=== PATIENT | male | born 1985 | race Caucasian/White ===

== ENCOUNTER 2017-11-16 07:22 | Emergency (ER) | payer BC ==
[2017-11-16 07:34] VITALS: BP 130/79
[2017-11-16] MEDS ORDERED: Tetracaine 0.5% OPTH.SOL 4 ML* 1 DROP BTL ONE (07:36)
[2017-11-16] MEDS ORDERED: BSS OPTH.SOL* BTL ONE (07:36)
[2017-11-16] MEDS ORDERED: Fluorescein Sod TOPICAL 0.6* 0.6 MG TEST OPHTHALMIC ONE ×2 (07:36→07:44)
[2017-11-16] MEDS ORDERED: Tetracaine 0.5% OPTH.SOL 4 ML* 1 DROP BTL LEFT EYE ONE (07:44)
[2017-11-16] MEDS ORDERED: BSS OPTH.SOL* BTL OPHTHALMIC ONE (07:45)
--- NOTE | 2017-11-16 10:40 | UC ---
Laura Thomas Tenzin, scribed for Moustapha Marin MD on 11/16/17 at 0812 . Eye Complaint HPI - HPI Summary HPI Summary: Room: Pt is a 32 years old male presenting to the complaining of pain and discomfort in his left eye. Pt was working on the ceilings at his home four days ago. He reports that something might have fallen in his eyes during that time. Currently the pt rates the pain and discomfort at 2/10 in severity. He describes the pain as aching. He has never injured his eye before. Discomfort is there since the initial onset but now additionally his eye hurts as well. MD: Pt has something in his eye. Vital signs stable. BP: 130/79 on no medications for hypertension. 2/10 left eye discomfort, non-smoker. Visit history colon noncontributory to present complaint. 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 Pt states that there are irritations in his eye. - History of Current Complaint Chief Complaint: UCEye Stated Complaint: EYE COMPLAINT Time Seen by Provider: 11/16/17 07:27 Hx Obtained From: Patient Onset/Duration: Lasting Days - 5 days ago. Pain Intensity: 2 - Allergies/Home Medications Allergies/Adverse Reactions: Allergies Allergy/AdvReac Type Severity Reaction Status Date / Time No Known Allergies Allergy Verified 11/16/17 07:34 PMH/Surg Hx/FS Hx/Imm Hx - Additional Past Medical History Additional PMH: NEGATIVE: PE, Cardiac disease. - Surgical History Surgical History: None Surgery Procedure, Year, and Place: NONE PERTINENT TO SCAN - Family History Known Family History: Positive: Diabetes - Social History Alcohol Use: Rare Substance Use Type: None Smoking Status (MU): Never Smoked Tobacco Review of Systems Constitutional: Negative Skin: Negative Eyes: Eye Redness, Other - Eye discomfort. ENT: Negative Respiratory: Negative Cardiovascular: Negative Gastrointestinal: Negative Genitourinary: Negative Motor: Negative Neurovascular: Negative Musculoskeletal: Negative Neurological: Negative Psychological: Negative All Other Systems Reviewed And Are Negative: Yes Physical Exam - Summary Physical Exam Summary: Appearance: The patient is well-appearing, is in no pain distress, and is well- nourished. Eyes: PEERL, LEFT EYE: MILD SCLERAL INJECTION, NOT PARALIMBIC. THERE IS A LESS THAN 1MM FOREIGN BODY APPROX. AT 9'O CLOCK OF THE CIRCUMFERENCE OF THE CORNEA. ENT: The hearing is grossly normal, the pharynx is normal, and the TMs are normal. There is no muffled or hoarse voice. Neck: The neck is supple and there is no lymphadenopathy. Respiratory: The chest is nontender. LUNGS CLEAR, there are normal breath sounds , and there is no respiratory distress. Cardiovascular: HEART REGULAR RATE AND RHYTHM. There is no murmur. Abdomen: ABDOMEN SOFT/NONTENDER There is no organomegaly. Bowel sounds: present Musculoskeletal: Strength is intact. The patient moves all extremities. Neurological: The patient is alert. Psychological: The patient displays age appropriate behavior Skin: Negative for rashes Triage Information Reviewed: Yes Vital Signs: Initial Vital Signs Temp 96.9 F 11/16/17 07:30 Pulse 66 11/16/17 07:30 Resp 18 11/16/17 07:30 BP 130/79 11/16/17 07:30 Pulse Ox 97 11/16/17 07:30 Vital Signs Reviewed: Yes Procedures - Procedure Summary Procedure Summary: Attempt to remove foreign body with the swab, not successful, mild erythema, mild injection noted around the area of the foreign body. NO other foreign body noted under the above lid, bulbar conjunctiva. Eye irrigated with saline. Eye Complaint Course/Dx - Course Course Of Treatment: Fluorescent and Tetracaine reveal no abrasion in left eye. There is a foreign body. I couldnt remove it. Pt will be referred to ophthalmology - Differential Dx/Diagnosis Differential Diagnosis/HQI/PQRI: Other - Abrasion vs. foreign body. Provider Diagnoses: Foreign body left eye for pass four days. Discharge - Sign-Out/Discharge Documenting (check all that apply): Discharge/Admit/Transfer - Discharge Plan Condition: Stable Disposition: HOME Patient Education Materials: Eye Foreign Body (ED) Referrals: No Primary Care Phys,NOPCP [Primary Care Provider] - Additional Instructions: WE DISCUSSED: 1. See ophthalmology today. Go to Dr. Campos now. 2. Your blood pressure was slightly elevated. Recheck it 3 times in the next month. 3. Call for any questions or concerns. - Billing Disposition and Condition Condition: STABLE Disposition: Home The documentation as recorded by the Laura blancas Tenzin accurately reflects the service I personally performed and the decisions made by , Moustapha Marin MD.
== END 2017-11-16 08:20 | disposition home or self-care (01) ==
LOC: UCEAST 07:22
DX: T15.02XA Foreign body in cornea, left eye, initial encounter (principal); X58.XXXA Exposure to other specified factors, initial encounter; Y93.9 Activity, unspecified; Y92.9 Unspecified place or not applicable; Z83.3 Family history of diabetes mellitus
CPT/HCPCS: 99211; A9270-GY; G0463

== ENCOUNTER 2019-05-06 16:41 | Emergency (ER) | payer BC ==
[2019-05-06 16:56] VITALS: BP 124/90
--- NOTE | 2019-05-06 17:45 | UC ---
Throat Pain/Nasal Bacilio HPI - HPI Summary HPI Summary: 33-year-old male with a mild sore throat over the past 2 days. His son has strep and is on antibiotics. - History of Current Complaint Chief Complaint: UCRespiratory Stated Complaint: SORE THROAT Time Seen by Provider: 05/06/19 17:21 Hx Obtained From: Patient Onset/Duration: Gradual Onset Severity: Mild Pain Intensity: 2 Cough: Nonproductive - Very minimal nonproductive cough. Associated Signs & Symptoms: Positive: Negative - Allergies/Home Medications Allergies/Adverse Reactions: Allergies Allergy/AdvReac Type Severity Reaction Status Date / Time No Known Allergies Allergy Verified 05/06/19 16:56 Home Medications: Home Medications guaiFENesin 100 mg/5 ml LIQ [Robitussin 100 mg/5ml LIQ] 5 ml PO Q6HR 05/06/19 [ History Confirmed 05/06/19] PMH/Surg Hx/FS Hx/Imm Hx Previously Healthy: Yes - Surgical History Surgical History: None Surgery Procedure, Year, and Place: NONE PERTINENT TO SCAN - Family History Known Family History: Positive: Diabetes - Social History Alcohol Use: Rare Substance Use Type: None Smoking Status (MU): Never Smoked Tobacco Review of Systems All Other Systems Reviewed And Are Negative: Yes ENT: Positive: Sore Throat Respiratory: Positive: Cough - Nonproductive cough. Is Patient Immunocompromised?: No Physical Exam Triage Information Reviewed: Yes Appearance: Well-Appearing, No Pain Distress, Well-Nourished Vital Signs: Initial Vital Signs Temp 97.6 F 05/06/19 16:52 Pulse 65 05/06/19 16:52 Resp 16 05/06/19 16:52 BP 124/90 05/06/19 16:52 Pulse Ox 100 05/06/19 16:52 Vital Signs Reviewed: Yes Eyes: Positive: Conjunctiva Clear ENT: Positive: Hearing grossly normal, Pharyngeal erythema - Minimal pharyngeal erythema., TMs normal, Uvula midline. Negative: Trismus, Muffled voice, Hoarse voice Neck: Positive: Supple, Nontender, No Lymphadenopathy Respiratory: Positive: Lungs clear, Normal breath sounds, No respiratory distress, No accessory muscle use Cardiovascular: Positive: RRR, No Murmur, Pulses Normal, Brisk Capillary Refill Musculoskeletal Exam: Normal Neurological Exam: Normal Psychological Exam: Normal Skin Exam: Normal Throat Pain/Nasal Course/Dx - Course Course Of Treatment: Rapid strep test: Negative - Differential Dx/Diagnosis Provider Diagnosis: Pharyngitis Discharge ED - Sign-Out/Discharge Documenting (check all that apply): Patient Departure All imaging exams completed and their final reports reviewed: No Studies - Discharge Plan Condition: Good Disposition: HOME Patient Education Materials: Pharyngitis (ED) Referrals: No Primary Care Phys,NOPCP [Primary Care Provider] - [facility] [Outside] Additional Instructions: Increase fluids, warm saltwater gargles, throat lozenges. Follow up with your primary care provider if no improvement in 3 or 4 days. - Billing Disposition and Condition Condition: GOOD Disposition: Home - Attestation Statements Provider Attestation: Per institutional requirements, I have reviewed the chart, however, I was not consulted specifically or made aware of this patient by the midlevel provider. I did not personally evaluate, interact with , or disposition this patient.
== END 2019-05-06 17:55 | disposition home or self-care (01) ==
LOC: UCEAST 16:41
DX: J02.9 Acute pharyngitis, unspecified (principal)
CPT/HCPCS: 87651; 99211; G0463